=== PATIENT | female | born 1950 | race Caucasian/White ===

== ENCOUNTER 2016-05-13 17:08 | Emergency (ER) | payer OTHER ==
[~2016-05-13] VITALS: Ht 160 cm; Wt 74.1 kg
[2016-05-13] MEDS ORDERED: MOTRIN800 MG PO (19:23)
[2016-05-13 20:55] VITALS: BP 121/59
== END 2016-05-13 20:56 | disposition home or self-care (01) ==
LOC: EME 17:08
DX: S42.294A Other nondisplaced fracture of upper end of right humerus, initial encounter for closed fracture (principal); M62.838 Other muscle spasm; W22.8XXA Striking against or struck by other objects, initial encounter; V00.321A Fall from snow-skis, initial encounter; Y93.23 Activity, snow (alpine) (downhill) skiing, snowboarding, sledding, tobogganing and snow tubing; Y92.838 Other recreation area as the place of occurrence of the external cause
CPT/HCPCS: 73030; 99281; 99284; J3010